=== PATIENT | male | born 1995 | race Caucasian/White ===

== ENCOUNTER 2016-08-18 22:16 | Emergency (ER) | payer OTHER ==
[2016-08-18 23:44] VITALS: BP 143/71
== END 2016-08-18 23:43 | disposition home or self-care (01) ==
LOC: ED 22:16
DX: L73.9 Follicular disorder, unspecified (principal); Z88.0 Allergy status to penicillin

== ENCOUNTER 2016-11-26 11:35 | Emergency (ER) | payer OTHER ==
[~2016-11-26] VITALS: Ht 185.4 cm; Wt 115.4 kg
[2016-11-26 11:41] VITALS: BP 159/120
== END 2016-11-26 12:40 | disposition home or self-care (01) ==
LOC: ED 11:35
DX: L03.112 Cellulitis of left axilla (principal); Z88.0 Allergy status to penicillin